=== PATIENT | female | born 1945 | race Caucasian/White ===

== ENCOUNTER → 2024-09-09 12:35 | Outpatient (BNVA) | payer MEDICARE, OTHER, SELFPAY | PROVIDERS: PCP Nurse Practitioner; Visit Provider Specialist | DX: G45.1 Carotid artery syndrome (hemispheric) (principal); G43.109 Migraine with aura, not intractable, without status migrainosus; G43.919 Migraine, unspecified, intractable, without status migrainosus | CPT/HCPCS: 99204 ==

== ENCOUNTER 2024-09-16 07:31 | Outpatient (CLI) | payer MEDICARE, OTHER, SELFPAY ==
--- NOTE | 2024-09-16 08:30 | MR_ITS ---
WS: [id number] MRI BRAIN WITHOUT CONTRAST HISTORY: G45.1 - Carotid artery syndrome (hemispheric), ocular migraines. COMPARISON: None available. TECHNIQUE: Diffusion imaging, multiplanar T1, T2 and FLAIR imaging obtained. No evidence for acute infarct or hemorrhage. Beltran-white matter differentiation is normal. Mild bilateral cerebral and cerebellar atrophy. Scattered T2 and FLAIR signal hyperintensities appropriate for the patient's age. Minimal atrophy of the cerebellum. No prior infarcts or hemorrhage. Normal flow voids. Ventricles and extra-axial spaces are normal. No inferior displacement of cerebellar tonsils. The sella turcica and pituitary gland are unremarkable. Dural venous sinuses and [place] demonstrate no abnormality on this unenhanced studies. Paranasal sinuses: Clear. Mastoid air cells: Normal. Calvarium and scalp: Intact. MR/MR head wo con* [id number] IMPRESSION: 1. No acute infarct or hemorrhage. Normal diffusion imaging. 2. Mild cerebral and cerebellar atrophy with mild small vessel ischemic type c hanges in the supratentorial white matter. 3. No hydrocephalus.
--- NOTE | 2024-09-16 09:15 | MR_ITS ---
WS: [id number] MRA ANGIOGRAPHY [place] OF [place] HISTORY: G45.1 - Carotid artery syndrome (hemispheric) COMPARISON: None available. TECHNIQUE: 3-D MR angiography is performed of the [place]. All images are reviewed including source images. Normal caliber distal vertebral arteries are both patent. Basilar artery is normal. Persistent circulation RIGHT posterior cerebral artery. Patent LEFT posterior communicating artery. P2 segments are both patent. Intracranial portion of the internal carotid arteries are normal course and caliber. No significant atherosclerosis, stenosis or aneurysm identified. Middle and anterior cerebral arteries are both patent with no significant disease. Anterior communicating artery is also normal. MR/MR angio head wo con [id number] IMPRESSION: Normal MRA [place].
--- NOTE | 2024-09-16 09:30 | MR_ITS ---
WS: [id number] MRA CAROTID ARTERIES HISTORY: G45.1 - Carotid artery syndrome (hemispheric) COMPARISON: None available. TECHNIQUE: MRA is performed with intravenous gadolinium. MIP and source images are reviewed. Right: Normal cervical carotid artery. No significant plaque or stenosis at the bifurcation. Left: Normal cervical carotid artery. No significant plaque or stenosis at the bifurcation. Subclavian Arteries: Normal subclavian arteries. Vertebral Arteries: Normal vertebral arteries. MR/MR angio neck w con* [id number] IMPRESSION: Normal MR angiogram carotid arteries.
[2024-09-16] MEDS: gadobenate dimeglumine 20 mL vial 15 ML IV (12:58)
== END 2024-09-16 07:32 | disposition home or self-care (01) ==
PROVIDERS: PCP Nurse Practitioner; Visit Provider Specialist
DX: G45.1 Carotid artery syndrome (hemispheric) (principal); G43.109 Migraine with aura, not intractable, without status migrainosus; R93.0 Abnormal findings on diagnostic imaging of skull and head, not elsewhere classified; G31.89 Other specified degenerative diseases of nervous system
CPT/HCPCS: 70544; 70548; 70551

== ENCOUNTER → 2024-09-27 11:15 | Outpatient (BNVA) | payer MEDICARE, OTHER, SELFPAY | PROVIDERS: PCP Nurse Practitioner; Visit Provider Specialist | DX: G43.109 Migraine with aura, not intractable, without status migrainosus (principal); G45.1 Carotid artery syndrome (hemispheric) | CPT/HCPCS: 99214 ==